=== PATIENT | male | born 1970 | race Caucasian/White ===

== ENCOUNTER 2017-10-20 05:30 | Inpatient (IN) ==
[2017-10-20 05:51] VITALS: BMI 36.3
[2017-10-20] MEDS ORDERED: ONDANSETRON 4 MG/2 ML INJECTION IVP ONE (06:00)
[2017-10-20] MEDS ORDERED: LIDOCAINE 1% (10mg/ml) 2mL INJ PF SDV ID ONE (06:00)
[2017-10-20] MEDS ORDERED: TRANEXAMIC ACID 1,000 MG in NS 100 ML IV ONE ×2 (06:00→07:00)
[2017-10-20] MEDS ORDERED: ACETAMINOPHEN 500 MG TABLET PO ONE (06:00)
[2017-10-20] MEDS ORDERED: FAMOTIDINE PB 20 MG/50 ML BAG IV ONE (06:00)
[2017-10-20] MEDS ORDERED: METOCLOPRAMIDE 10mg/2ml INJECTION IVP ONE (06:00)
[2017-10-20] MEDS ORDERED: DEXAMETHASONE 4 MG/ML INJECTION IVP ONE (06:00)
[2017-10-20] MEDS ORDERED: CEFAZOLIN 1 G INJECTION IVP ONE (06:15)
[2017-10-20] MEDS: LR 1,000 ML IV SCH ×2 (06:20→07:49)
[2017-10-20] MEDS: NOZIN NASAL SWAB NAS SCH ×5 (06:27→21:02)
[2017-10-20] MEDS ORDERED: VANCOMYCIN 1,000 MG INJECTION ONE (06:42)
[2017-10-20] MEDS ORDERED: ONDANSETRON 4 MG/2 ML INJECTION IVP PRN ×2 (06:54→10:09)
--- NOTE | 2017-10-20 06:54 | Anesthesia Preoperative Report ---
Anesthesia Preoperative Record - Date and Time Date: 10/20/17 Preoperative Diagnosis: Rt LAURIE M16.11 NPO Since Date: 10/19/17 NPO Since Time: 23:00 Allergies/Adverse Reactions: Allergies Allergy/AdvReac Type Severity Reaction Status Date / Time Penicillins Allergy Unknown unknown Verified 10/20/17 06:07 - Vital Signs Vital Signs: Temperature 98.0 F 10/20/17 05:50 Pulse Rate 77 10/20/17 06:21 Respiratory Rate 14 10/20/17 05:50 Blood Pressure 128/84 10/20/17 05:50 Pulse Oximetry 96 10/20/17 05:50 Height and Weight: Height 6 ft 1 in Weight 124.9 kg Body Mass Index 36.3 - Medications Inpatient Medications: Current Medications Cefazolin Sodium (Kefzol) 3 g IVP PREOP ONE Stop: 10/20/17 06:16 Epinephrine HCl 0.25 mg/Bupivacaine HCl 30 ml/Ketorolac Tromethamine 60 mg/ Sodium Chloride 62.25 mls @ 0 mls/hr OPSITE INTRAOP ONE; Per Protocol PRN Reason: Protocol Stop: 10/20/17 08:01 Tranexamic Acid 1,000 mg/ (Sodium Chloride) 110 mls @ 660 mls/hr IV INTRAOP ONE Stop: 10/20/17 07:09 Lactated Ringer's (Lactated Ringers) 1,000 mls @ 50 mls/hr IV .Q20H [facility] Last Admin: 10/20/17 06:20 Dose: 50 mls/hr Isopropyl Alcohol (Nozin Nasal Swab) 1 each KEZIA Q1M [facility] Stop: 10/20/17 10:18 Last Admin: 10/20/17 06:35 Dose: 1 each Sodium Chloride (Iv Flush) 10 - 80 ml IV PRN PRN PRN Reason: Flushing Home Medications: Home Medications Medication Instructions Recorded Confirmed Type Advil (Ibuprofen) 200 mg capsule 800 mg PO BID PRN 09/07/17 10/20/17 History ergocalciferol (vitamin D2) 50,000 50,000 unit PO DAILY #2 cap 10/03/17 Rx unit capsule Is Patient on Beta Malik?: No - Medical History Respiratory: DENIES: Sleep Apnea Cardiovascular: Reports: Other (mixed hyperlipidemia) DENIES: Angina, Coronary Artery Disease, Hypertension Gastrointestional: DENIES: Gastroesophageal Reflux Disease Neuro/Musculoskeletal: Reports: HX.MS.OSAR Other History: DENIES: Anesthesia Reactions - Surgical History GI Surgery/Treatments: Reports: Appendectomy Musculoskeletal Surgery/Tx: Reports: Knee Arthroscopy (Rt and Lt) Anesthesia Reactions: None Hx Family Anesthesia Reaction: No History of Motion Sickness: No - Social History Smoking Status: Never smoker Hx Chewing Tobacco Use: No Second Hand Exposure: No Substance Use Type: does not use Alcohol Intake: never - Pertinent Findings EKG: Sinus Rhythm - Physical Exam Respiratory Exam: Present: lungs clear, bilateral breath sounds equal Cardiovascular Exam: Present: regular rate and rhythm - Airway Assessment Mallampati Score: II TMD: 3 Fingerbreadths Neck Extension: good - ASA ASA Score: 2 - Plan Anesthesia: General Inhalation Gases - Discussion Discussion: Discussed risks/options/alternatives of anesthesia and questions answered. Patient consents. Nursing pain assessment noted. Present for Discussion: spouse, family member Attestation Statement: Prior to the delivery of any anesthetic medication, I examined the patient, developed the plan, obtained the patient's consent and discussed the risk and benefits of the procedure with the patient/guardian. - Additional Information Seen by Anesthesia: Yes
[2017-10-20] MEDS ORDERED: MIDAZOLAM 2mg/2ml INJECTION ONE (07:02)
[2017-10-20] MEDS ORDERED: FentaNYL 250 MCG/5 ML INJECTION ONE (07:02)
[2017-10-20] MEDS ORDERED: PROPOFOL 500 MG/50 ML VIAL ONE (07:04)
[2017-10-20] MEDS ORDERED: SUCCINYLCHOLINE 20mg/mL 10mL INJECTION ONE (07:04)
[2017-10-20] MEDS ORDERED: ROCURONIUM 50 MG/5 ML INJECTION IVP ONE (07:27)
[2017-10-20] MEDS ORDERED: MORPHINE SULFATE 10 MG/ML VIAL ONE (07:38)
[2017-10-20] MEDS ORDERED: VANCOMYCIN 1,000 MG INJECTION IAR ONE (07:43)
[2017-10-20] MEDS ORDERED: ONDANSETRON 4 MG/2 ML INJECTION ONE (07:53)
[2017-10-20] MEDS ORDERED: DEXAMETHASONE 4 MG/ML INJECTION ONE (07:53)
[2017-10-20] MEDS ORDERED: EPINEPHrine PF 0.25 MG, BUPIVACAINE 0.25% PF 30 ML, KETOROLAC INJ 60 MG in NS 30 ML OPSITE ONE (08:00)
[2017-10-20] MEDS ORDERED: SUGAMMADEX 200mg/2ml INJECTION IVP ONE (08:57)
--- NOTE | 2017-10-20 08:59 | Operative Note ---
- Procedure Preoperative Diagnosis: Right hip primary degenerative joint disease Postoperative Diagnosis: Same as preoperative diagnosis. Surgeon: Christine Flower MD Moderate Needs Teacher: Becky Alves Complications: None. Anesthesia: Spinal. Estimated Blood Loss: See Anesthesia Record. Fluids: Please see Anesthesia Record. Description of Procedure: Mr. Stokes and his right hip were identified and marked in the preoperative holding area. He was brought back to the operating suite and general anesthetic was administered. He was then placed in a lateral decubitus position with his right hip up. The right lower extremity was prepped and draped in my normal sterile fashion. Timeout was performed. The CIT[employer] robotic arm was used to assist with the surgery. A pelvic array was placed into the iliac crest through three small incisions. A posterior approach was utilized. An approximately 20 cm incision was made in the skin and dissection carried down to the muscle fascia which was then split in line with skin incision. The short external rotators were identified and tagged and detached. A capsulotomy was performed and the hip dislocated. A femoral neck osteotomy was performed at the pre-templated level measuring down from the femoral head 60 mm. The head was removed and acetabulum exposed. Labrum was removed. The acetabulum was then registered with the robot. The robotic arm was then used to ream with a 53 reamer. The robot then was again used to place a 54 Trident cup in 40 of tilt and 20 of anteversion. A liner was then placed. The proximal femur was exposed and prepared with a cookie cutter followed by reaming and broaching to a size 3. We trialed with a 0 head. This felt good but a touch short so we trialed again with 127 neck and a +2.5 head. This felt very good he was stable to 45 of internal rotation. After thorough irrigation a final Accolade 2 size 3 stem with 127 neck was placed. Leg length and offset were checked with the robot and were good. A final +2.5 ceramic 36 mm head was placed and the hip reduced. Betadine solution was used to irrigate throughout the case. It was followed by normal saline irrigation. Joint cocktail was injected throughout soft tissue. The capsulotomy was repaired with Ethibond. Short external rotators were also repaired with Ethibond. 1 g of vancomycin powder was placed into the wound. The muscle fascia was then repaired with #1 Vicryl. I then left my parts room assistant to close the subcutaneous tissue with 2-0 Vicryl followed by running 4-0 Monocryl skin followed by Dermabond and a sterile dressing. The patient with any placed back into supine position and taken to recovery room in the care of anesthesia.
[2017-10-20] MEDS: MORPHINE SULFATE 10 MG/ML VIAL IVP PRN ×2 (09:47→09:57)
[2017-10-20] MEDS ORDERED: NOZIN NASAL SWAB NAS ONE (10:09)
[2017-10-20] MEDS ORDERED: LORazepam 1 MG TABLET PO PRN (10:09)
[2017-10-20] MEDS ORDERED: SALINE FLUSH 10ml SYRINGE IV PRN (10:09)
[2017-10-20] MEDS ORDERED: DiphenhydrAMINE 50 MG/ML INJECTION IVP PRN (10:09)
[2017-10-20] MEDS ORDERED: DiphenhydrAMINE 25 MG CAPSULE PO PRN (10:09)
--- NOTE | 2017-10-20 10:11 | XRay Report ---
Indication: postoperative image PROCEDURE: XR pelvis w/ 1 view RT hip: Encounter: Initial Comparison: None Findings: Postoperative changes of right total hip replacement are seen. There is expected postoperative subcutaneous gas. No evidence of hardware failure or acute fracture. No retained radiopaque surgical instruments or sponges seen. Moderate degenerative change in the left hip with ring osteophytes on the left femoral head. Impression: New right total hip prosthesis without evidence of immediate complication. .
[2017-10-20] MEDS: NS 1,000 ML IV SCH (10:22)
[2017-10-20] MEDS: NAPROXEN 220 MG TABLET PO SCH ×2 (10:40→21:02)
[2017-10-20] MEDS: DOCUSATE SODIUM 100 MG CAPSULE PO SCH ×2 (10:42→21:03)
[2017-10-20] MEDS: ACETAMINOPHEN 325 MG TABLET PO SCH ×4 (10:42→21:03)
[2017-10-20] MEDS: POLYETHYL GLYCOL 3350 17gm PACKET PO SCH (10:43)
--- NOTE | 2017-10-20 11:37 | Anesthesia Postoperative Note ---
- Date and Time Date: 10/20/17 Time: 09:55 - Status Patient Participated in Evaluation: Patient Participated in Person Vital Signs: Temperature 97.3 F 10/20/17 10:24 Pulse Rate 86 10/20/17 11:09 Respiratory Rate 12 10/20/17 10:39 Blood Pressure 132/70 10/20/17 11:09 Pulse Oximetry 100 10/20/17 11:09 Respiratory Function: Airway Patent Cardiovascular Function: Regular Pulse EKG: Sinus Rhythm Mental Status: Alert and Oriented (slightly drowsy) Pain Intensity: 3 Hydration: IV Infusing Complications During Recover: None Apparent - Follow-Up Instructions Instructions: Per Surgeon
[2017-10-20] MEDS: CEFAZOLIN 3 G in NS 100 ML IV SCH ×2 (14:57→22:49)
[2017-10-20] MEDS ORDERED: SENNOSIDES 8.6 MG TABLET PO SCH (21:00)
[2017-10-20] MEDS: ASPIRIN *EC* 81 MG TABLET PO SCH (21:04)
[2017-10-21] MEDS: NS 1,000 ML IV SCH ×2 (02:12→11:57)
[2017-10-21] MEDS: NOZIN NASAL SWAB NAS SCH (05:45)
[2017-10-21] MEDS: Oxycodone *IR* 5 MG TABLET PO PRN ×3 (07:17→14:39)
--- NOTE | 2017-10-21 08:06 | Orthopedic Progress Note ---
Date: Date: 10/21/17 Time: 0800 Subjective/Severity of Illness: Vinny is sitting up on the edge of the bed when I visit this morning, just finished bath. States he only needed Tylenol and Aleve last night for pain. Took Roxicodone this morning after getting up. Denies any CP, SOA, nausea, tolerating PO well. States he has been coughing post-operatively. Has been using IS. Hgb 12.6 Orthopedic Exam Vital signs: Temperature 96.7 F L 10/21/17 04:00 Pulse Rate 68 10/21/17 04:00 Respiratory Rate 18 10/21/17 04:00 Blood Pressure 124/65 10/21/17 04:00 Pulse Oximetry 97 10/21/17 04:00 - Constitutional General Appearance: Present: alert, orientated x3, cooperative, well developed, well nourished - Respiratory Exam Present: CTA bilaterally, non-labored - Cardiovascular Exam Present: pedal pulses intact - Extremities Exam Present: pulses intact. Absent: calf tenderness - Dressing Dressing: dry, intact, no drainage Comments: mepilex dressing c/d/i. Telfa dressing has scant amount of serosanguineous drainage. - Integumentary Exam Present: pink, warm, dry, intact - Neurological Exam Present: intact to light touch, no deficits - Labs Result Diagrams: 10/21/17 04:04 10/21/17 04:04 Abnormal lab results 10/21/17 10/21/17 Range/Units 04:04 04:04 Hgb 12.6 L (13.5-17.5) GM/DL Glucose 111 H (75-110) MG/DL Calcium 8.3 L (8.4-10.2) MG/DL Specimen Hemolysis 35 H (0-25) H & H 10/21/17 Range/Units 04:04 Hgb 12.6 L (13.5-17.5) GM/DL Orthopedic Assessment and Plan (1) Osteoarthritis of right hip Status: Chronic Assessment and Plan: Current anti-coagulation protocol with ASA 81mg BID x 6 weeks for VTE prophylaxis. SCD's for added protection. PT/OT services to improve independent function. Discharge Planning per Case Management. - Anticoagulation Therapy Anticoagulation: ASA 81 mg PO BID x6 weeks Hospital Course Summary Disclaimer: The visit summary below is not to be considered part of the above Progress Note.
[2017-10-21] MEDS ORDERED: FALL RISK - PHARMACY CONSULT MC ONE (08:10)
[2017-10-21] MEDS: NAPROXEN 220 MG TABLET PO SCH (08:17)
[2017-10-21] MEDS: ASPIRIN *EC* 81 MG TABLET PO SCH (08:17)
[2017-10-21] MEDS: ACETAMINOPHEN 325 MG TABLET PO SCH ×2 (08:17→13:03)
[2017-10-21] MEDS: POLYETHYL GLYCOL 3350 17gm PACKET PO SCH (08:17)
[2017-10-21] MEDS: DOCUSATE SODIUM 100 MG CAPSULE PO SCH (08:17)
[2017-10-21] MEDS ORDERED: SENNOSIDES 8.6 MG TABLET PO PRN (08:40)
[2017-10-21 10:22] VITALS: BP 130/65; PULSE 75; RESP 16; TEMP 96.8; O2SAT 99
--- NOTE | 2017-10-21 13:29 | Discharge Summary ---
Orthopedic Discharge Info Date of admission: 10/20/17 05:30 Anticipated date of discharge: 10/21/17 Primary care physician: MD Joaquin Loaiza MD Attending Physician: Nicolas Flower MD Consults: 10/20/17 05:43 Consult to Anesthesiology [CONS] Routine Reason For Exam: Preoperative Assessment 10/20/17 10:09 Case Management Consult [CONS] Routine Reason For Exam: Discharge Planning DME-Walker [CONS] Routine Height: 6 ft 1 in Weight: 124.9 kg Total Joint Outpatient Therapy [CONS] Routine Comment: Remove dressing in 2 weeks - Discharge Diagnosis (1) Osteoarthritis of right hip Status: Chronic - Laboratory Result Diagrams: 10/21/17 04:04 10/21/17 04:04 Laboratory: Abnormal lab results 10/21/17 10/21/17 Range/Units 04:04 04:04 Hgb 12.6 L (13.5-17.5) GM/DL Glucose 111 H (75-110) MG/DL Calcium 8.3 L (8.4-10.2) MG/DL Specimen Hemolysis 35 H (0-25) H & H 10/21/17 Range/Units 04:04 Hgb 12.6 L (13.5-17.5) GM/DL Orthopedic Discharge HPI - HPI Comments This patient was admitted for elective surgical tx of end stage degenerative joint disease that failed to respond to conservative treatment. Further details of this is found in the admission H&P. Orthopedic Hospital Course Hospital course: 10/21/17 13:28 After appropriate preoperative clearance and signing of operative consent, the patient was given IV antibiotics, according to orthopedic protocol. The patient was taken to the operating room and underwent elective right total hip arthroplasty. Following surgery, antibiotics were discontinued less than 24 hours according to joint protocol. Appropriate anticoagulants were initiated and SCDs added for DVT prevention. The dressing was clean, dry, and intact. Pain control was obtained via multimodal approach. Bowel motivation addressed with scheduled and PRN medications. Early mobilization was initiated through PT services. Discharge arrangements made by a collaborative effort between the patient and Case Management. Follow-up is scheduled in 2-3 weeks. Discharge instructions given by orthopedic providers and nursing staff at discharge. Discharge condition was good. Care extended to > 2 midnight stays?: No Discharge Plan - Med Rec/Dispo Referrals/Follow Up: Becky Alves APRN [Advanced Practice Nurse] - 11/14/17 9:15 am Nicolas Flower MD [Physician] - [facility] Instructions: [facility] Ortho Postop Instructions Additional Instructions: [facility] ON 10/24/2017 AT 8:00AM FOR PHYSICAL THERAPY EVAL. PLEASE COMPLETE THE PAPERWORK IN THE [facility] FOLDER PRIOR TO THE APPOINTMENT. PHONE [phone] Prescriptions: New Acetaminophen [Tylenol] 650 mg PO QID tab Milk of Magnesia [Mom] 30 ml PO DAILY udc Naproxen [Aleve (Naproxen) 220 mg] 440 mg PO BID tab PEG 3350 17gm PACKET [Miralax] 17 gm PO DAILY packet Oxycodone *IR* [Roxicodone *Ir*] 5 - 15 mg PO Q3H PRN #60 tab PRN Reason: Breakthrough Pain Aspirin *EC* [Ecotrin] 81 mg PO BID tab Docusate Sodium [Colace] 100 mg PO BID cap Continue Advil (Ibuprofen) 200 mg capsule 800 mg PO BID PRN PRN Reason: pain ergocalciferol (vitamin D2) 50,000 unit capsule 50,000 unit PO DAILY #2 cap - Disposition 01 Discharged Home, Self-Care - Dismissal Complete Discharge Instructions are:: Complete
[2017-10-22] MEDS ORDERED: BISACODYL 10 MG SUPPOSITORY RECTALLY SCH (20:00)
== END 2017-10-21 14:45 | disposition home or self-care (01) | DRG 470 ==
LOC: NMC.PERIOP 05:30 → SRG 10:15
PROVIDERS: ADMIT Orthopaedic Surgery; ATTEND Orthopaedic Surgery